=== PATIENT | male | born 1975 | race African-American/Black ===

== ENCOUNTER 2021-09-11 19:17 | Emergency (ER) | payer SELFPAY | END 2021-09-11 20:11 | disposition left against medical advice (07) | LOC: CSHERS 19:17 | DX: Z53.21 Procedure and treatment not carried out due to patient leaving prior to being seen by health care provider (principal) ==

== ENCOUNTER 2024-07-06 13:32 | Emergency (ER) | payer OTHER ==
[2024-07-06 14:10] LABS: #Basophils 0.02 10x3/uL (0.0-0.2); #Eosinophils 0.22 10x3/uL (0.0-0.5); #Monocytes 1.02 10x3/uL (0.0-1.1); #Neutrophils 4.03 10x3/uL (1.5-8.4); %Basophils 0.2 % (0.0-2.0); %Eosinophils 2.4 % (0.0-6.0); %Lymphocytes 40.5 % (18.0-47.0); %Monocytes 11.3 % (0.0-10.0); %Neutrophils 44.7 % (40.0-75.0); Hematocrit 37.7 % (38.8-50.0); Hemoglobin 12.4 g/dL (13.5-17.5); Mean Corpuscular HGB CONC 32.9 g/dL (32.0-36.0); Mean Corpuscular Hemoglobin 29.6 pg (27.0-33.0); Mean Platelet Volume 10.2 fL (7.4-10.4); Platelet Count 305 10x3/uL (150-450); RBC Distribution Width 12.7 % (11.5-14.5); Red Blood Cell (RBC) Count 4.19 10x6/uL (4.32-5.72)
[2024-07-06 14:26] LABS: ALT (SGPT) 40 U/L (8-55); AST (SGOT) 25 U/L (5-34); Albumin 3.4 g/dL (3.5-5.0); Alkaline Phosphatase 82 U/L (40-110); Anion Gap 14 mmol/L (10-20); BUN (Urea Nitrogen) 9 mg/dL (8.9-20.6); Bilirubin, Total 0.3 mg/dL (0.2-1.2); Calc. Creatinine Clearance 0 mL/min (70-130); Calcium 8.9 mg/dL (7.8-10.44); Carbon Dioxide 27 mmol/L (22-29); Chloride 102 mmol/L (98-107); Estimated GFR 86; Glucose 110 mg/dL (70-105); Potassium 3.6 mmol/L (3.5-5.1); Protein, Total 6.4 g/dL (6.0-8.3); Sodium 139 mmol/L (136-145)
[2024-07-06 14:29] LABS: Troponin I Less than 0.010 ng/mL (< 0.028)
[2024-07-06] MEDS ORDERED: predniSONE 20 MG TAB ONE (15:18)
[2024-07-06] MEDS ORDERED: Ipratropium/Albuterol 3 ML NEB ONE ×2 (15:23→16:04)
== END 2024-07-06 17:19 | disposition home or self-care (01) ==
LOC: CSHERS 13:32
DX: J20.9 Acute bronchitis, unspecified (principal)
CPT/HCPCS: 71045; 80053; 84484; 85025; 93005; 94640; J7512; J7620

== ENCOUNTER 2025-03-31 15:38 | Emergency (ER) | payer OTHER, SELFPAY | END 2025-03-31 16:52 | disposition home or self-care (01) | LOC: CSHERS 15:38 | DX: J06.9 Acute upper respiratory infection, unspecified (principal) | CPT/HCPCS: 71045; 87426 ==